=== PATIENT | male | born 1965 | race Caucasian/White ===

== ENCOUNTER 2017-12-31 10:02 | Inpatient (IN) | payer OTHER ==
[~2017-12-31] VITALS: Ht 175.3 cm; Wt 91.0 kg
[~2017-12-31 10:02] MED LIST: (None)50 MG; ATOR40TA PO; BACL10; CRANBERRY250 MG PO; Coumadin4 MG PO; FISH1000 PO; GUAPHELA PO; HYDACE5 PO; HYDR1TAB94 PO; LEVE500 PO; LISI5 PO; MULVITMIND PO; POLY500 PO; RXHYDGUAS PO; RXSULTRIDS PO; SULTRIDS PO; THIA100 PO; TRAZ50 PO; WARF4 PO; [UNRECOGNIZED DRUG - OTHER]
[2017-12-31 10:30] LABS: Calcium, Ionized (POC) 1.11 mmol/L (1.10-1.46); Chloride (POC) 88 mmol/L (98-108); Creatinine (POC) 2.9 mg/dL (0.8-1.3); Glucose (ISTAT POC) >700 mg/dL (70-99); Hemoglobin (POC) 11.6 g/dL (13.5-17.5); Potassium (POC) 4.2 mmol/L (3.5-5.5); Sodium (POC) 121 mmol/L (135-148); Total CO2 (POC) 15 mmol/L (21-32)
[2017-12-31 10:37] LABS: Base Excess Venous -15.3 mmol/L; Bicarbonate Venous 13.3 mmol/L (24.0-30.0); PCO2 Venous 36.3 mmHg (38-42); PO2 Venous 54.7 mmHg (38-42); pH Blood Venous 7.17 (7.34-7.37)
[2017-12-31] MEDS ORDERED: ACET500 (10:43)
[2017-12-31] MEDS ORDERED: DABI150C PO (10:44)
[2017-12-31 10:45] LABS: BASOPHILS PERCENT AUTO 0 % (0-2); EOSINOPHILS PERCENT AUTO 0 % (0-6); Hematocrit 34.2 % (37.0-53.0); Hemoglobin 11.8 g/dL (13.5-17.5); IMMATURE GRAN ABSOLUTE AUTO 0.01 K/mm3 (0.00-0.10); IMMATURE GRAN PERCENT AUTO 0 % (0-1); LYMPHOCYTES ABSOLUTE AUTO 0.88 K/mm3 (0.84-5.20); LYMPHOCYTES PERCENT AUTO 17 % (21-46); MONOCYTES ABSOLUTE AUTO 0.52 K/mm3 (0.16-1.47); MONOCYTES PERCENT AUTO 10 % (4-13); Mean Corpuscular HGB 29.8 pg (26.0-34.0); Mean Corpuscular HGB Conc 34.5 g/dL (31.5-36.5); Mean Corpuscular Volume 86 fL (80-100); Mean Platelet Volume 12.5 fL (9.1-12.4); NEUTROPHILS PERCENT AUTO 73 % (41-73); Platelet Count 194 K/mm3 (150-400); RDW Coefficient Variation 11.1 % (11.7-14.2); RDW Standard Deviation 34.9 fL (35.1-46.3); Red Blood Cell Count 3.96 M/mm3 (4.30-5.90); White Blood Cell Count 5.21 K/mm3 (4.00-11.30)
[2017-12-31] MEDS ORDERED: GEMF600 PO (10:45)
[2017-12-31] MEDS ORDERED: GENTEAL TEARS 015 ML (10:45)
[2017-12-31] MEDS ORDERED: DIVA500EC PO (10:45)
[2017-12-31] MEDS ORDERED: LISINOPRIL PO (10:46)
[2017-12-31] MEDS ORDERED: HCTZ PO (10:46)
[2017-12-31] MEDS ORDERED: LEVE500 PO (10:47)
[2017-12-31] MEDS ORDERED: Omeprazole20 M1 PO (10:48)
[2017-12-31] MEDS ORDERED: TADA10TA (10:48)
[2017-12-31 11:10] LABS: Albumin, Blood 3.2 g/dL (3.4-5.0); Albumin/Globulin Ratio 0.8 (0.8-1.8); Bilirubin, Total 0.6 mg/dL (0.1-1.0); Bun/Creatinine Ratio 30.6 (12.0-20.0); Calcium, Blood 8.4 mg/dL (8.5-10.1); Creatinine, Blood 2.71 mg/dL (0.60-1.20); Globulin, Blood 3.8 g/dL (2.2-4.0); Potassium, Blood 4.1 mmol/L (3.5-5.5)
[2017-12-31 13:58] LABS: Potassium, Blood 4.5 mmol/L (3.5-5.5)
[2017-12-31 15:31] LABS: Potassium, Blood 4.4 mmol/L (3.5-5.5)
[2017-12-31 16:26] LABS: Anion Gap 18 mmol/L (6-16); CO2, Blood 15 mmol/L (21-32); Chloride, Blood 97 mmol/L (98-108); Glucose, Blood 650 mg/dL (70-99); Potassium, Blood 4.4 mmol/L (3.5-5.5); Sodium, Blood 130 mmol/L (136-145)
[2017-12-31 16:55] LABS: Glucose (ISTAT POC) 525 mg/dL (70-99)
[2017-12-31 17:55] LABS: Glucose (ISTAT POC) 479 mg/dL (70-99)
[2017-12-31 18:07] LABS: Potassium, Blood 4.5 mmol/L (3.5-5.5)
[2017-12-31 20:32] LABS: Potassium, Blood 4.5 mmol/L (3.5-5.5)
[2017-12-31 20:41] LABS: U Amphetamine Screen Not Detected; U Barbituate Screen Not Detected; U Benzodiazapine Screen Not Detected; U Buprenorphine Screen Not Detected; U Cannabinoids Screen Not Detected; U Cocaine Screen Not Detected; U Methadone Screen Not Detected; U Methamphetamine Screen Not Detected; U Opiates Screen Not Detected; U Oxycodone Screen Not Detected; U Phencyclidine Screen Not Detected; U Propoxyphene Screen Not Detected
[2017-12-31] MEDS ORDERED: Hair, Skin & N1 EACH PO (20:48)
[2017-12-31] MEDS ORDERED: MAGCHL64ER PO (20:49)
[2017-12-31] MEDS ORDERED: DIPH50 PO (20:50)
[2017-12-31 22:39] LABS: Bun/Creatinine Ratio 31.5 (12.0-20.0); Calcium, Blood 7.2 mg/dL (8.5-10.1); Creatinine, Blood 1.65 mg/dL (0.60-1.20); Potassium, Blood 4.7 mmol/L (3.5-5.5)
[2018-01-01 00:18] LABS: Potassium, Blood 4.8 mmol/L (3.5-5.5)
[2018-01-01 04:59] LABS: BASOPHILS ABSOLUTE AUTO 0.02 K/mm3 (0.00-0.23); BASOPHILS PERCENT AUTO 0 % (0-2); EOSINOPHILS ABSOLUTE AUTO 0.02 K/mm3 (0.00-0.68); EOSINOPHILS PERCENT AUTO 0 % (0-6); Hemoglobin 10.5 g/dL (13.5-17.5); IMMATURE GRAN ABSOLUTE AUTO 0.01 K/mm3 (0.00-0.10); IMMATURE GRAN PERCENT AUTO 0 % (0-1); LYMPHOCYTES PERCENT AUTO 27 % (21-46); MONOCYTES ABSOLUTE AUTO 0.42 K/mm3 (0.16-1.47); MONOCYTES PERCENT AUTO 8 % (4-13); Mean Corpuscular HGB 29.6 pg (26.0-34.0); Mean Corpuscular Volume 85 fL (80-100); Mean Platelet Volume 11.6 fL (9.1-12.4); NEUTROPHILS ABSOLUTE AUTO 3.29 K/mm3 (1.96-9.15); NEUTROPHILS PERCENT AUTO 64 % (41-73); Platelet Count 172 K/mm3 (150-400); RDW Coefficient Variation 11.3 % (11.7-14.2); Red Blood Cell Count 3.55 M/mm3 (4.30-5.90); White Blood Cell Count 5.16 K/mm3 (4.00-11.30)
[2018-01-01 05:19] LABS: Anion Gap 10 mmol/L (6-16); Blood Urea Nitrogen 36 mg/dL (8-24); CO2, Blood 18 mmol/L (21-32); Calcium, Blood 7.4 mg/dL (8.5-10.1); Chloride, Blood 112 mmol/L (98-108); Creatinine, Blood 1.24 mg/dL (0.60-1.20); Glomerular Filtration Rate >60 (60-); Glucose, Blood 186 mg/dL (70-99); Potassium, Blood 4.5 mmol/L (3.5-5.5); Sodium, Blood 140 mmol/L (136-145)
[2018-01-01 09:04] LABS: Potassium, Blood 4.1 mmol/L (3.5-5.5)
[2018-01-02 09:07] LABS: Anion Gap 18 mmol/L (6-16); Blood Urea Nitrogen 15 mg/dL (8-24); Bun/Creatinine Ratio 17.4 (12.0-20.0); CO2, Blood 15 mmol/L (21-32); Chloride, Blood 101 mmol/L (98-108); Creatinine, Blood 0.86 mg/dL (0.60-1.20); Glomerular Filtration Rate >60 (60-); Glucose, Blood 183 mg/dL (70-99); Potassium, Blood 4.4 mmol/L (3.5-5.5); Sodium, Blood 134 mmol/L (136-145)
[2018-01-02] MEDS ORDERED: INSULANPEN SC (09:41)
[2018-01-02] MEDS ORDERED: Novolog Fl100 UNIT/1 SC (09:41)
== END 2018-01-02 10:50 | disposition home or self-care (01) | DRG 637 ==
LOC: ER 10:02 → ICUE 11:38 → ICUW 11:38 → ICUE 12:52
PROVIDERS: Emergency Medicine; Internal Medicine; Nurse Practitioner Acute Care
DX: E11.10 Type 2 diabetes mellitus with ketoacidosis without coma (principal); G92 Toxic encephalopathy; N17.9 Acute kidney failure, unspecified; I69.954 Hemiplegia and hemiparesis following unspecified cerebrovascular disease affecting left non-dominant side; I10 Essential (primary) hypertension; I95.9 Hypotension, unspecified; G40.909 Epilepsy, unspecified, not intractable, without status epilepticus; E86.0 Dehydration; Z74.09 Other reduced mobility; Z87.891 Personal history of nicotine dependence; Z86.718 Personal history of other venous thrombosis and embolism; Z79.01 Long term (current) use of anticoagulants; Z79.899 Other long term (current) drug therapy
CPT/HCPCS: 36415; 51702; 80047; 80048; 80051; 80053; 82010; 82803; 82947; 83036; 83605; 83690; 85014; 85025; 92526; 93005; 93010; C9113; G8996; G8997; G8998; J1815; J1953; J2405; J3480; J7030; J7042

== ENCOUNTER 2022-11-25 09:14 | Day surgery (SDC) | payer OTHER ==
[~2022-11-25] VITALS: Ht 175.3 cm; Wt 100.0 kg
[~2022-11-25 09:14] MED LIST changes: +ACET500; +DABI150C PO; +DIPH50 PO; +DIVA500EC PO; +GEMF600 PO; +GENTEAL TEARS 015 ML; +HCTZ PO; +Hair, Skin & N1 EACH PO; +INSULANPEN SC; +LISINOPRIL PO; +MAGCHL64ER PO; +Novolog Fl100 UNIT/1 SC; +Omeprazole20 M1 PO; +TADA10TA
[2022-11-25] MEDS ORDERED: ROSU5 PO (09:38)
[2022-11-25] MEDS ORDERED: DABI150C PO (09:40)
[2022-11-25] MEDS ORDERED: OZEMPIC0.25 MG/01 INJ (09:45)
[2022-11-25] MEDS ORDERED: 1/2 NS 250ml250 ML (09:45)
== END 2022-11-25 10:55 | disposition home or self-care (01) ==
LOC: ORSCSDS 09:14
PROVIDERS: Student in an Organized Health Care Education/Training Program
PROC: 0DJD8ZZ Inspection of Lower Intestinal Tract, Via Natural or Artificial Opening Endoscopic (ICD-10-PCS; principal; 2022-11-25 10:45)
DX: Z12.11 Encounter for screening for malignant neoplasm of colon (principal); Z86.010 Personal history of colon polyps; K57.30 Diverticulosis of large intestine without perforation or abscess without bleeding; I10 Essential (primary) hypertension; G81.94 Hemiplegia, unspecified affecting left nondominant side; G47.33 Obstructive sleep apnea (adult) (pediatric); E11.9 Type 2 diabetes mellitus without complications; R56.9 Unspecified convulsions; E78.5 Hyperlipidemia, unspecified; Z87.891 Personal history of nicotine dependence; Z79.4 Long term (current) use of insulin; Z79.84 Long term (current) use of oral hypoglycemic drugs; Z79.899 Other long term (current) drug therapy
CPT/HCPCS: 82947; J2704; J7120

== ENCOUNTER 2024-06-28 13:06 | Day surgery (SDC) | payer OTHER ==
[~2024-06-28] VITALS: Ht 175.3 cm; Wt 99.7 kg
[~2024-06-28 13:06] MED LIST changes: +1/2 NS 250ml250 ML; +ARTIFICIAL TEA1 EAC1 BOTHEYES; +DEPAKOTE500 M2 PO; +JARDIANCE25 MG PO; +Keppra750 MG PO; +Lactated Ringer's 1,000 ML IV ONE; +METF500 PO; +OZEMPIC0.25 MG/01 INJ; +OZEMPIC1 MG/0.72 SC; +ROSU5 PO; +ROSUVASTATIN CA10 MG PO; +ZONI100 PO
[2024-06-28] MEDS ORDERED: Lactated Ringer's 1,000 ML IV ONE (13:47)
[2024-06-28] MEDS ORDERED: propofoL 50 ML IV ONE (14:14)
[2024-06-28] MEDS ORDERED: Lidocaine HCl 1% 30 ML SDV ONE (14:31)
[2024-06-28 15:34] VITALS: BP 129/86
== END 2024-06-28 15:25 | disposition home or self-care (01) ==
LOC: ORSCSDS 13:06
PROVIDERS: Internal Medicine Gastroenterology
PROC: 0DJ08ZZ Inspection of Upper Intestinal Tract, Via Natural or Artificial Opening Endoscopic (ICD-10-PCS; principal; 2024-06-28 11:15)
DX: K74.60 Unspecified cirrhosis of liver (principal); G47.33 Obstructive sleep apnea (adult) (pediatric); Z86.0101 Personal history of adenomatous and serrated colon polyps; E78.5 Hyperlipidemia, unspecified; R56.9 Unspecified convulsions; E78.00 Pure hypercholesterolemia, unspecified; E11.9 Type 2 diabetes mellitus without complications; Z87.891 Personal history of nicotine dependence; Z79.84 Long term (current) use of oral hypoglycemic drugs; Z79.85 Long-term (current) use of injectable non-insulin antidiabetic drugs; Z79.899 Other long term (current) drug therapy
CPT/HCPCS: 82947; J2704; J7120